=== PATIENT | male | born 1935 | race Hispanic/Latino ===

== ENCOUNTER 2016-07-05 07:28 | Outpatient (CLI) | payer MEDICARE, OTHER ==
[2016-07-05 08:19] LABS: #Basophils 0.1 thou/uL (0.0-0.2); #Eosinphils 0.3 thou/uL (0.0-0.7); #Lymphocytes 2.5 thou/uL (1.20-3.40); #Monocytes 0.7 thou/uL (0.11-0.59); #Neutrophils 3.7 thou/uL (1.40-6.50); %Eosinophils 4.6 % (0.0-10.0); %Monocytes 9.4 % (0.0-10.0); Hematocrit 44.5 % (42.0-52.0); Mean Platelet Volume 8.6 fL (7.4-10.4); Red Blood Cell (RBC) Count 4.87 mill/uL (4.70-6.10); White Blood Cell (WBC) Count 7.3 thou/uL (4.8-10.8)
[2016-07-05 08:28] LABS: ALT (SGPT) 28 U/L (0-55); AST (SGOT) 19 U/L (5-34); Alkaline Phosphatase 81 U/L (40-150); Anion Gap 14 mmol/L (10-20); BUN (Urea Nitrogen) 27 mg/dL (8.4-25.7); Bilirubin, Total 0.5 mg/dL (0.2-1.2); Calc. Creatinine Clearance 0 mL/min (70-130); Calcium 10.7 mg/dL (7.8-10.44); Carbon Dioxide 27 mmol/L (23-31); Chloride 103 mmol/L (98-107); Estimated GFR-MDRD 45; Globulin 3.6 g/dL (2.4-3.5); LDL Cholesterol, Calculated 91 mg/dL; Protein, Total 7.7 g/dL (5.8-8.1)
[2016-07-05 08:29] LABS: Hemoglobin A1c 11.2 % (4.0-6.0)
== END 2016-07-05 07:29 | disposition home or self-care (01) ==
LOC: BURLAB 07:28
PROVIDERS: ATTEND Family Medicine
DX: E11.9 Type 2 diabetes mellitus without complications (principal); E78.3 Hyperchylomicronemia; E07.9 Disorder of thyroid, unspecified
CPT/HCPCS: 36415; 80053; 80061; 83036; 84443; 85025

== ENCOUNTER 2017-08-21 11:46 | Outpatient (CLI) | payer MEDICARE, MEDICAID ==
--- NOTE | 2017-08-21 13:14 | RAD ---
CHEST 2 VIEWS: Date: 08/21/17 HISTORY: Pneumonia. COMPARISON: 05/03/14. FINDINGS: Cardiac silhouette and pulmonary vasculature are unremarkable. Mediastinum is midline. Mild linear sc arring at the bases is stable. There is no confluent air space consolidation, pneumothorax, or pleura l fluid apparent. There are degenerative change of the thoracic spine. IMPRESSION: No active cardiopulmonary abnormalities are demonstrated. POS: [facility]
== END 2017-08-21 11:47 | disposition home or self-care (01) ==
LOC: BURRAD 11:46
PROVIDERS: ATTEND Family Medicine
DX: J18.9 Pneumonia, unspecified organism (principal)
CPT/HCPCS: 71046

== ENCOUNTER 2020-07-03 16:35 | Emergency (ER) | payer MEDICARE, MEDICAID ==
[2020-07-03 17:54] LABS: #Eosinphils 0.2 thou/uL (0.0-0.7); #Lymphocytes 1.1 thou/uL (1.20-3.40); #Monocytes 0.4 thou/uL (0.11-0.59); #Neutrophils 4.1 thou/uL (1.40-6.50); %Basophils 0.4 % (0.0-1.0); %Eosinophils 3.3 % (0.0-10.0); %Lymphocytes 19.1 % (21.0-51.0); %Monocytes 7.4 % (0.0-10.0); %Neutrophils 69.9 % (42.0-75.0); Hemoglobin 11.8 g/dL (14.0-18.0); Mean Corpuscular HGB CONC 33.9 g/dL (32.0-36.0); Mean Corpuscular Hemoglobin 29.9 pg (27.0-31.0); Mean Corpuscular Volume 88.1 fL (78.0-98.0); Mean Platelet Volume 8.9 fL (7.4-10.4); Platelet Count 326 thou/uL (130-400); RBC Distribution Width 12.1 % (11.5-14.5); Red Blood Cell (RBC) Count 3.96 mill/uL (4.70-6.10); White Blood Cell (WBC) Count 5.9 thou/uL (4.8-10.8)
[2020-07-03] MEDS ORDERED: Dexamethasone 10 MG/ML VIAL ONE (18:17)
[2020-07-03] MEDS ORDERED: cefTRIAXone\\ROCEPHIN 1 GM VIAL ONE (18:17)
[2020-07-03] MEDS ORDERED: Sodium Chloride 0.9% 100 ML ONE (18:18)
[2020-07-03 18:28] LABS: ALT (SGPT) 17 U/L (8-55); AST (SGOT) 31 U/L (5-34); Albumin 3.5 g/dL (3.4-4.8); Alkaline Phosphatase 84 U/L (40-110); Anion Gap 18 mmol/L (10-20); BUN (Urea Nitrogen) 61 mg/dL (8.4-25.7); Bilirubin, Total 0.4 mg/dL (0.2-1.2); Calc. Creatinine Clearance 0 mL/min (70-130); Calcium 8.6 mg/dL (7.8-10.44); Carbon Dioxide 18 mmol/L (23-31); Chloride 103 mmol/L (98-107); Globulin 4.4 g/dL (2.4-3.5); Glucose 147 mg/dL (83-110); Protein, Total 7.9 g/dL (5.8-8.1); Sodium 135 mmol/L (136-145)
[2020-07-03 19:18] LABS: Bilirubin Negative (Negative); Blood, Urine Small (Negative); Clarity Clear (Clear); Glucose, Urine (Dipstick) Negative (Negative); Ketone, Urine Negative (Negative); Leukocyte Negative (Negative); Nitrite Negative (Negative); Protein, Urine (Dipstick) 100 mg/dL (Neg-Trace); Specific Gravity, Urine 1.015 (1.005-1.030); pH, Urine 5.5 (5.0-9.0)
[2020-07-03 19:27] LABS: Bacteria/HPF None Seen HPF (None Seen); RBC/HPF 0-3 HPF (0-3); Squamous Epithelial 0-3 HPF (0-3); WBC/HPF None Seen HPF (0-3)
--- NOTE | 2020-07-03 20:17 | RAD ---
PORTABLE CHEST: 07/03/20 An AP portable film at 1747 is compared with a 08/21/17 study. The heart is normal in size. There are now prominent pulmonary interstitial markings bilaterally, tamir e of which show some thicker areas in the lung bases. There are no large effusions. IMPRESSION: Prominent lung markings and a few vaguely patchy areas, particularly in the lower lobes more than the upper, right more than left. An infectious etiology seems likely, and the pattern would be consisten t with COVID in the right clinical setting. POS: HOME
[2020-07-03 20:23] LABS: SARS-CoV-2 NAA Rapid Test DETECTED (NotDetected)
== END 2020-07-03 22:30 | disposition short-term general hospital (02) ==
LOC: BURERS 16:35
DX: U07.1 COVID-19 (principal); N28.9 Disorder of kidney and ureter, unspecified; I25.10 Atherosclerotic heart disease of native coronary artery without angina pectoris; E11.9 Type 2 diabetes mellitus without complications; E78.5 Hyperlipidemia, unspecified; E78.00 Pure hypercholesterolemia, unspecified; I10 Essential (primary) hypertension
CPT/HCPCS: 0240U; 36415; 71045; 80053; 81003; 81015; 83605; 83880; 84484; 85025; 87040; 87086; 93005; 94760; 96365; 96375; J0696; J1100; J3490

== ENCOUNTER 2022-01-11 16:13 | Outpatient (CLI) | payer MEDICARE, MEDICAID | END 2022-01-11 16:14 | disposition home or self-care (01) | LOC: BURRAD 16:13 | PROVIDERS: ATTEND Family Medicine | DX: M25.561 Pain in right knee (principal); M25.562 Pain in left knee; M17.0 Bilateral primary osteoarthritis of knee ==

== ENCOUNTER 2022-02-22 14:58 | Emergency (ER) | payer MEDICARE, OTHER ==
[2022-02-22] MEDS ORDERED: Ibuprofen 800 MG TAB ONE (16:26)
[2022-02-22] MEDS ORDERED: traMADol HCl 50 MG TAB ONE (16:26)
== END 2022-02-22 16:49 | disposition home or self-care (01) ==
LOC: BURERS 14:58
DX: S70.01XA Contusion of right hip, initial encounter (principal); S20.211A Contusion of right front wall of thorax, initial encounter; S00.83XA Contusion of other part of head, initial encounter; I25.10 Atherosclerotic heart disease of native coronary artery without angina pectoris; E11.9 Type 2 diabetes mellitus without complications; E78.5 Hyperlipidemia, unspecified; I10 Essential (primary) hypertension; W19.XXXA Unspecified fall, initial encounter
CPT/HCPCS: 70450; 71045

== ENCOUNTER 2022-07-16 03:45 | Emergency (ER) | payer MEDICARE, MEDICAID ==
[2022-07-16 04:11] LABS: INR-International Normal Ratio 1.2; Prothrombin Time 15.3 sec (12.0-14.7)
[2022-07-16 04:17] LABS: ALT (SGPT) Less than 7 U/L (8-55); AST (SGOT) 9 U/L (5-34); Albumin 3.3 g/dL (3.4-4.8); Alkaline Phosphatase 92 U/L (40-110); Anion Gap 15 mmol/L (10-20); BUN (Urea Nitrogen) 44 mg/dL (8.4-25.7); Bilirubin, Total 0.3 mg/dL (0.2-1.2); Calc. Creatinine Clearance 0 mL/min (70-130); Carbon Dioxide 21 mmol/L (23-31); Chloride 108 mmol/L (98-107); Estimated GFR 18; Glucose 79 mg/dL (83-110); Potassium 4.6 mmol/L (3.5-5.1); Protein, Total 7.3 g/dL (5.8-8.1); Sodium 139 mmol/L (136-145)
[2022-07-16 04:22] LABS: Hemoglobin 9.4 g/dL (14.0-18.0); Mean Corpuscular HGB CONC 32.4 g/dL (32.0-36.0); Mean Corpuscular Hemoglobin 29.7 pg (27.0-31.0); Mean Corpuscular Volume 91.7 fl (78.0-98.0); Mean Platelet Volume 6.9 fL (7.4-10.4); Platelet Count 295 10x3/uL (130-400); RBC Distribution Width 13.5 % (11.5-14.5); Red Blood Cell (RBC) Count 3.15 mill/uL (4.70-6.10); White Blood Cell (WBC) Count 9.5 10x3/uL (4.8-10.8)
[2022-07-16 04:39] LABS: Eosinophils 3 % (0-10); Lymphocytes 43 % (21-51); MDiff Complete? YES; Monocytes 5 % (0-10); Neutrophil 49 % (42-75); RBC Morphology Normal
[2022-07-16 05:43] LABS: Bilirubin Negative (Negative); Blood, Urine Trace (Negative); Clarity Clear (Clear); Glucose, Urine (Dipstick) Negative (Negative); Ketone, Urine Negative (Negative); Leukocyte Negative (Negative); Nitrite Negative (Negative); Protein, Urine (Dipstick) 100 mg/dL (Neg-Trace); Urobilinogen 0.2 mg/dL (Less than 2)
[2022-07-16 05:47] LABS: Bacteria/HPF None Seen HPF (None Seen); RBC/HPF 0-3 HPF (0-3); Squamous Epithelial None Seen HPF (0-3); WBC/HPF None Seen HPF (0-3)
== END 2022-07-16 06:56 ==
LOC: BURERS 03:45
DX: S01.412A Laceration without foreign body of left cheek and temporomandibular area, initial encounter (principal); S01.81XA Laceration without foreign body of other part of head, initial encounter; E78.00 Pure hypercholesterolemia, unspecified; E11.22 Type 2 diabetes mellitus with diabetic chronic kidney disease; I12.0 Hypertensive chronic kidney disease with stage 5 chronic kidney disease or end stage renal disease; N18.6 End stage renal disease; W19.XXXA Unspecified fall, initial encounter
CPT/HCPCS: 12014; 70450; 72125; 80053; 81003; 81015; 85025; 85610

== ENCOUNTER 2022-07-27 10:40 | Emergency (ER) | payer MEDICARE, OTHER | END 2022-07-27 12:30 | LOC: BURERS 10:40 | DX: S09.90XA Unspecified injury of head, initial encounter (principal); S00.01XA Abrasion of scalp, initial encounter; I12.0 Hypertensive chronic kidney disease with stage 5 chronic kidney disease or end stage renal disease; E11.22 Type 2 diabetes mellitus with diabetic chronic kidney disease; N18.6 End stage renal disease; I25.10 Atherosclerotic heart disease of native coronary artery without angina pectoris; E78.00 Pure hypercholesterolemia, unspecified; F03.90 Unspecified dementia, unspecified severity, without behavioral disturbance, psychotic disturbance, mood disturbance, and anxiety; E03.9 Hypothyroidism, unspecified; W06.XXXA Fall from bed, initial encounter; Y92.129 Unspecified place in nursing home as the place of occurrence of the external cause; Z79.899 Other long term (current) drug therapy | CPT/HCPCS: 70450; 72125 ==